=== PATIENT | female | born 1950 | race Two or more races ===

== ENCOUNTER 2022-03-28 09:10 | Outpatient (CLI) | payer MEDICARE, BC | END 2022-03-28 23:59 | disposition home or self-care (01) | LOC: WOU 09:10 | PROVIDERS: ATTEND Specialist | DX: M72.6 Necrotizing fasciitis (principal); C50.911 Malignant neoplasm of unspecified site of right female breast; J90 Pleural effusion, not elsewhere classified | CPT/HCPCS: 71046; G0463 ==

== ENCOUNTER 2022-05-09 12:36 | Outpatient (CLI) | payer MEDICARE, BC | END 2022-05-09 23:59 | disposition home or self-care (01) | LOC: WOU 12:36 | PROVIDERS: ATTEND Specialist | DX: C50.911 Malignant neoplasm of unspecified site of right female breast (principal); C79.9 Secondary malignant neoplasm of unspecified site; M72.6 Necrotizing fasciitis | CPT/HCPCS: G0463 ==

== ENCOUNTER 2022-05-23 10:30 | Outpatient (CLI) | payer MEDICARE, BC | END 2022-05-23 23:59 | disposition home or self-care (01) | LOC: WOU 10:30 | PROVIDERS: ATTEND Specialist | DX: M72.6 Necrotizing fasciitis (principal); C50.911 Malignant neoplasm of unspecified site of right female breast | CPT/HCPCS: G0463 ==

== ENCOUNTER 2022-05-30 10:52 | Outpatient (CLI) | payer MEDICARE, BC | END 2022-05-30 23:59 | disposition home or self-care (01) | LOC: WOU 10:52 | PROVIDERS: ATTEND Specialist | DX: M72.6 Necrotizing fasciitis (principal); C50.911 Malignant neoplasm of unspecified site of right female breast | CPT/HCPCS: G0463 ==

== ENCOUNTER 2022-06-06 14:49 | Outpatient (CLI) | payer MEDICARE, BC | END 2022-06-06 23:59 | disposition home or self-care (01) | LOC: WOU 14:49 | PROVIDERS: ATTEND Specialist | DX: M72.6 Necrotizing fasciitis (principal); C50.911 Malignant neoplasm of unspecified site of right female breast | CPT/HCPCS: G0463 ==

== ENCOUNTER 2022-08-08 08:58 | Outpatient (CLI) | payer MEDICARE, BC | END 2022-08-08 23:59 | disposition home or self-care (01) | LOC: WOU 08:58 | PROVIDERS: ATTEND Specialist | DX: N64.1 Fat necrosis of breast (principal); C50.011 Malignant neoplasm of nipple and areola, right female breast | CPT/HCPCS: G0463 ==

== ENCOUNTER → 2022-08-29 | Outpatient (CLI) | payer MEDICARE, BC | END | disposition home or self-care (01) | LOC: WOU 10:00 | PROVIDERS: ATTEND Specialist | DX: N64.1 Fat necrosis of breast (principal); C50.011 Malignant neoplasm of nipple and areola, right female breast | CPT/HCPCS: G0463 ==